=== PATIENT | male | born 1990 | race Caucasian/White ===

== ENCOUNTER → 2017-06-26 | Outpatient (CLI) | payer BC, OTHER ==
--- NOTE | 2017-06-26 09:45 | DIAGNOSTIC IMAGING REPORT ---
L KNEE 4 OR MORE CLINICAL HISTORY: LEFT KNEE DJD pain COMPARISON: None. DISCUSSION: The bones and joint spaces appear intact. There is no evidence of fracture, dislocation or bony disease. There is no evidence for soft tissue swelling. Evidence for an anterior cruciate ligament repair of the left knee. IMPRESSION: Negative study. No acute process The above report was generated using voice recognition software. It may contain grammatical, syntax postoperative changes left knee. No acute process. Or spelling errors. Electronically signed by: Eleazar Cavanaugh M.D. 06/26/2017 9:44 AM Dictated Date/Time: 06/26/2017 9:41 AM
== END | disposition home or self-care (01) ==
LOC: C.RDSM 07:55
PROVIDERS: ATTEND Physician Assistant
DX: M17.12 Unilateral primary osteoarthritis, left knee (principal)

== ENCOUNTER → 2017-07-14 | Day surgery (SDC) | payer OTHER ==
[2017-07-10 07:46] VITALS: Ht 177.8 cm; Wt 93.2 kg
[~2017-07-14] VITALS: Ht 177.8 cm; Wt 93.2 kg
[~2017-07-14] MED LIST: ATROPINE SULFATE 0.1 MG/ML 5ML SYR IV PRN; BUPIVACAINE/EPINEPHRINE 0.5% MPF 1:200,000 30 ML VIAL ONE; CEFAZOLIN 2000MG IV PUSH 15 ML IV SCH; DEXAMETHASONE SOD INJ 4 MG/ML VIAL ONE; EpHEDrine SULFATE INJ 50 MG/ML AMP IV PRN; FENTANYL CITRATE INJ 50 MCG/1 ML 2 ML VIAL IV PRN; FENTANYL CITRATE INJ 50 MCG/1 ML 2 ML VIAL ONE; HYDROCODONE/ACETAMIN 5/325MG TAB PO PRN; LACTATED RINGER'S 1000ML 1,000 ML IV SCH; LIDOCAINE HCL 2% 2 ML VIAL (20MG/ML) ONE; MIDAZOLAM HCL 1 MG/ML 2ML VIAL ONE; ONDANSETRON INJ 2 MG/ML 2 ML VIAL IV PRN; ONDANSETRON INJ 2 MG/ML 2 ML VIAL ONE; PROPOFOL IV EMULSION 10 MG/ML 20 ML VIAL IV ONE; SCOPOLAMINE 1.5 MG TDSY TD ONE; SODIUM CHLORIDE 0.9% 1000ML 1,000 ML IV SCH
--- NOTE | 2017-07-14 09:23 | History & Physical Bridge Note ---
H&P Re-Evaluation Bridge Note: I have examined the patient, reviewed the History & Physical and in the interval since the performance of the History & Physical I have noted the following changes of clinical significance:consent obtained. No changes noted
--- NOTE | 2017-07-14 09:24 | Discharge Instructions ---
Discharge Instructions Date of Service Jul 14, 2017. Visit Reason for Visit: Left Knee Retained Hardware Proximal Tibia Discharge Discharge Diagnosis / Problem: same Discharge Goals Goal(s): Decrease discomfort Medications Stopped Medications Name(s): na Restart Stopped Medication(s): use scripts as directed. Activity Recommendations Activity Limitations: as noted below Lifting Limitations: until after follow-up appointment Exercise/Sports Limitations: until after follow-up appointment May Resume Sexual Activity: after follow-up appointment Shower/Bathe: keep incision dry Weightbearing Status: Left weightbearing (as tolerated) Anesthesia . Post Anesthesia Instructions: If you have had General Anesthesia or IV Sedation: * Do not drive today. * Resume driving when surgeon permits. * Do not make important decisions or sign legal documents today. * Call surgeon for: 1. Temperature elevations greater than 101 degrees F. 2. Uncontrollable pain. 3. Excessive bleeding. 4. Persistent nausea and vomiting. 5. Medication intolerance (nausea, vomiting or rash). * For nausea and vomiting use only clear liquids such as: tea, soda, bouillon until nausea subsides, then gradually increase diet as tolerated. * If you have any concerns or questions, call your surgeon's office. If physician is unavailable and it is an emergency, call 911 or go to the nearest emergency room. . Instructions / Follow-Up Instructions / Follow-Up DIET: * Resume previous diet. MEDICATIONS: * Please take your prescriptions as instructed at your pre-op appointment and/ or see medication discharge instructions listed above. * If concerns develop, call your physician's office at . SPECIAL CARE INSTRUCTIONS: * Ice/Elevate as instructed. * Keep dressing clean, dry, intact. * Your surgical extremity may be discolored due to prepping agents used on the skin. A bluish-green tint is a normal variant and should not cause alarm. Call your doctor at [phone] if: * Temperature above 101 degrees * Pain not relieved by pain medicine ordered * There is increased drainage or redness from any incision * You have any unanswered questions, problems or concerns. FOLLOW UP VISIT: * If not already scheduled, please call the office at to schedule a follow-up appointment. Diet Recommendations Recommended Home Diet: no limitations Procedures Procedures Performed: removal screw Pending Studies Studies pending at discharge: yes List of pending studies: screw and tissue Medical Emergencies . Who to Call and When: Medical Emergencies: If at any time you feel your situation is an emergency, please call 911 immediately. . Non-Emergent Contact Non-Emergency issues call your: Specialist Call Non-Emergent contact if: wound has increased drainage, wound has increased redness, wound has increased pain . . "Provider Documentation" section prepared by Iraj Chandra. .
--- NOTE | 2017-07-14 11:10 | [facility] Post Operative Brief Note ---
Immediate Operative Summary Operative Date Jul 14, 2017. Pre-Operative Diagnosis Left Knee Retained Hardware Proximal Tibia Post-Operative Diagnosis same as preop Procedure(s) Performed Left Proximal Tibia Biodegradable Screw Removal Surgeon Dr Chandra Sterile Processing Technician Surgeon(s) Dr Scott Esteves MD and Hima Grimaldo Estimated Blood Loss trace Findings Consistent with Post-Op Diagnosis Fluids (cc crystalloids) 1000cc Specimens A) Left Proximal Tibia Debridement Biodegradable Screw Drains None Anesthesia Type General Complication(s) none Disposition Disposition: Recovery Room / PACU
--- NOTE | 2017-07-14 11:40 | OPERATIVE REPORT ---
DATE OF OPERATION: 07/14/2017 SURGEON: Iraj Chandra MD [place] ATTENDANT: Danielito. SECOND BEACH ATTENDANT: Hima Harrington PA-C PREOPERATIVE DIAGNOSIS: Status post anterior cruciate ligament reconstruction, left knee with retained hardware, symptomatic. POSTOPERATIVE DIAGNOSIS: Same. OPERATION PERFORMED: Removal of interference sleeve for hamstring autograft, left knee ACL reconstruction. Debridement of bursa. PERIOPERATIVE SITUATION: Medically cleared male who has a palpable area with ridge and used to be a loose piece of a screw that was biodegradable. At this point in time, he wants to proceed with surgical treatment to remove it. He has a history of an ACL reconstruction in the past. The old incision was then opened. The subperiosteal dissection was carried out. There was a small fragment of foreign body, which was removed. The bursa was excised with that. There was a small ridge of bone that was removed. Subperiosteal dissection was then further carried a little further laterally and then the screw identified, it was then backed out. The sleeve was then also backed out. The area was debrided of soft tissue. It was then irrigated and then blocked with 0.5% Marcaine with epinephrine about 10 mL, irrigated one final time and closed with 2-0 plain and 3-0 nylon sutures. Appropriate dressing applied and the patient was transferred to the recovery room in satisfactory condition having tolerated the procedure well. ESTIMATED BLOOD LOSS: Trace. CRYSTALLOID: 1000 mL DVT prophylaxis per protocol. Pathology pending on the screw. I attest to the content of the Intraoperative Record and any orders documented therein. Any exceptions are noted below. MELIZAD
--- NOTE | 2017-07-14 11:42 | Anesthesia Progress Nt - [facility] ---
Anesthesia Post Op Note Date & Time Jul 14, 2017 at 11:42 Vital Signs Pain Intensity: 4 Vital Signs Past 12 Hours Date Time Temp Pulse Resp B/P (MAP) Pulse Ox O2 Delivery O2 Flow Rate FiO2 07/14/17 11:37 119/56 07/14/17 11:33 73 14 100 07/14/17 11:33 78 14 07/14/17 11:31 111/61 07/14/17 11:28 75 16 07/14/17 11:28 74 16 100 07/14/17 11:26 115/45 07/14/17 11:23 36.4 75 16 115/45 100 Mask 8 07/14/17 09:39 36.7 56 16 140/81 (100) 98 Room Air Notes Mental Status: alert / awake / arousable, participated in evaluation Pt Amnestic to Procedure: Yes Nausea / Vomiting: adequately controlled Pain: adequately controlled Airway Patency, RR, SpO2: stable & adequate BP & HR: stable & adequate Hydration State: stable & adequate Anesthetic Complications: no major complications apparent
[2017-07-14 11:48] VITALS: TEMP 36.6
[2017-07-14 12:31] VITALS: BP 139/78; PULSE 69; O2SAT 98
--- NOTE | 2017-07-15 13:48 | [facility] Operative Report ---
Operative Report Operative Date Jul 14, 2017. Pre-Operative Diagnosis Left Knee Retained Hardware Proximal Tibia Post-Operative Diagnosis Left tibia same as preop Procedure(s) Performed Left Proximal Tibia Biodegradable Screw Removal Surgeon Dr Chandra Tool And Die Designer Surgeon(s) Dr Scott Esteves MD and Hima Grimaldo Estimated Blood Loss trace Findings Retained biodegradable screw in the proximal tibia Fluids 1000cc Specimens A) Left Proximal Tibia Debridement Biodegradable Screw Drains None Anesthesia Type General Complication(s) none Disposition Recovery Room / PACU Indications This 26-year-old white male presented to the office with complaints of tenderness over his old surgical site. There was a prominent bump on the proximal tibia at the site of his previous biodegradable screw placement. Preoperative imaging was obtained. He elected to proceed with surgical intervention after being educated about potential risks and outcomes. Description of Procedure Patient was taken to the operating room he was given general anesthesia. He was prepped and draped in usual sterile fashion. Please see Dr. Chandra' s operative report for specifics of the procedure. I was present for the entire case from initial patient positioning through final wound closure. Assistance was provided in tissue retraction, hemostasis, and final wound closure. Patient was taken to the recovery room in satisfactory condition. I attest to the content of the Intraoperative Record and any orders documented therein. Any exceptions are noted below.
== END | disposition home or self-care (01) ==
LOC: X.SURG 09:15
PROVIDERS: ATTEND Physical Medicine & Rehabilitation Sports Medicine
DX: Z45.2 Encounter for adjustment and management of vascular access device (principal)